=== PATIENT | female | born 1940 | race Asian ===

== ENCOUNTER 2016-12-30 19:25 | Emergency (ER) | payer MEDICARE, MEDICAID ==
[~2016-12-30] VITALS: Ht 162.6 cm; Wt 49.9 kg
[2016-12-30 19:27] VITALS: BP 163/89
[2016-12-30] MEDS ORDERED: Solu-MEDROL 125mg Inj IVP ONE (19:45)
[2016-12-30] MEDS ORDERED: Famotidine 20 MG/ 2ML VIAL IVP ONE (19:45)
[2016-12-30] MEDS ORDERED: DiphenhydrAMINE 50mg/ml Inj IVP ONE (19:45)
[2016-12-30 19:46] LABS: BASOPHILS % (AUTO) 1.2 % (0.0-2.0); EOSINOPHILS % (AUTO) 0.3 % (0.0-3.0); LYMPHOCYTES % (AUTO) 41.4 % (20.0-45.0); MEAN CORPUSCULAR HEMOGLOBIN 34.4 PG (27.0-31.0); MEAN CORPUSCULAR HGB CONC 35.9 G/DL (32.0-36.0); MEAN CORPUSCULAR VOLUME 96 FL (80-99); MEAN PLATELET VOLUME 8.9 FL (6.5-10.1); NEUTROPHILS % (AUTO) 47.1 % (45.0-75.0); PLATELET COUNT 187 K/UL (150-450); RED BLOOD COUNT 3.94 M/UL (4.20-5.40); RED CELL DISTRIBUTION WIDTH 11.8 % (11.6-14.8); WHITE BLOOD COUNT 7.5 K/UL (4.8-10.8)
[2016-12-30 20:14] LABS: ALANINE AMINOTRANSFERASE 25 U/L (3-33); ALBUMIN/GLOBULIN RATIO 1.2 (1.0-2.7); ANION GAP 16 (5-15); ASPARTATE AMINO TRANSFERASE 36 U/L (5-40); CALCIUM 8.3 mg/dL (8.6-10.2); CARBON DIOXIDE 22 mEQ/L (20-30); CHLORIDE 99 mEQ/L (98-107); CREATININE 0.9 mg/dL (0.5-0.9); HEMOLYSIS 96; POTASSIUM 4.8 mEQ/L (3.4-4.9); SODIUM 137 mEQ/L (135-145); TOTAL PROTEIN 7.6 g/dL (6.6-8.7); TROPONIN I < 0.30 ng/mL (<=0.30)
[2016-12-30 20:24] LABS: CKMB 3.1 ng/mL (< 3.8)
[2016-12-30] MEDS ORDERED: PREDNISONE20 MG ORAL (20:46)
[2016-12-30] MEDS ORDERED: DIPHENHYDRAMINE25 M1 ORAL (20:46)
--- NOTE | 2016-12-30 20:52 | Emergency Room Report ---
History of Present Illness General Chief Complaint: General Complaint Source: Patient Present Illness HPI 76-year-old female presents ED for evaluation. Per EMS patient was stung multiple times by bees today. Notes being stung in the face arms and legs multiple times. Patient denies any known allergy to bee stings. EMS states that they removed all the bee stingers. She presents with some swelling around her eyes. States she was stung there. Denies any shortness of breath. Denies any tongue swelling or throat swelling. States she feels fine. Denies any pain. No other aggravating or relieving factors. Denies any other associated symptoms Allergies: Coded Allergies: No Known Allergies (Unverified , 12/30/16) Patient History Past Medical History: DM, HTN Past Surgical History: none Pertinent Family History: none Social History: Denies: alcohol use, drug use, smoking Now: No Immunizations: UTD Reviewed Nursing Documentation: PMH: Agreed, PSxH: Agreed Nursing Documentation-PMH Past Medical History: No History, Except For Hx Hypertension: Yes - But Not take medications Hx Diabetes: Yes Review of Systems All Other Systems: negative except mentioned in HPI Physical Exam Vital Signs Date Time Temp Pulse Resp B/P Pulse Ox O2 Delivery O2 Flow Rate FiO2 12/30/16 19:22 97.9 86 16 160/70 98 Room Air Sp02 EP Interpretation: reviewed, normal General Appearance: no apparent distress, alert, GCS 15, non-toxic Head: normocephalic, other - some periorbital swelling noted bilaterally Eyes: bilateral eye EOMI, bilateral eye PERRL, bilateral eye normal inspection ENT: hearing grossly normal, normal pharynx, no angioedema, normal voice Neck: full range of motion, supple/symm/no masses Respiratory: chest non-tender, lungs clear, normal breath sounds, speaking full sentences Cardiovascular #1: regular rate, rhythm, no edema Cardiovascular #2: 2+ carotid (R), 2+ carotid (L), 2+ radial (R), 2+ radial (L) , 2+ dorsalis pedis (R), 2+ dorsalis pedis (L) Gastrointestinal: normal bowel sounds, non tender, soft, non-distended, no guarding, no rebound Rectal: deferred Genitourinary: normal inspection, no CVA tenderness Musculoskeletal: back normal, gait/station normal, normal range of motion, non- tender Neurologic: alert, oriented x3, responsive, motor strength/tone normal, sensory intact, speech normal Psychiatric: judgement/insight normal, memory normal, mood/affect normal, no suicidal/homicidal ideation Reflexes: 3+ bicep (R), 3+ bicep (L), 3+ tricep (R), 3+ tricep (L), 3+ knee (R) , 3+ knee (L) Skin: normal color, no rash, warm/dry, well hydrated Lymphatic: no adenopathy Medical Decision Making Diagnostic Impression: Primary Impression: Allergic reaction Qualified Codes: T78.40XA - Allergy, unspecified, initial encounter Additional Impression: Bee sting reaction Qualified Codes: T63.441A - Toxic effect of venom of bees, accidental ( unintentional), initial encounter ER Course Hospital Course 76-year-old female presents with multiple bee stings to her hands and face. No documented allergy. No shortness of breath Differential diagnoses include: allergic reaction, angioedema Clinical course Patient placed on stretcher. 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 After initial history and physical, I ordered Solu-Medrol, Benadryl, Zantac, IV fluids, EKG, CXR Labs reviewed - electrolytes okay, no leukocytosis, hemoglobin/hematocrit okay EKG - NSR, no acute changes CXR unremarkable Patient observed for some time in ED. On cardiac monitoring. No signs of anaphylaxis. No shortness of breath. I believe patient be safely discharged to home at this time i. I feel this is a highly complex case requiring extensive working including EKG/Rhythm strip, Xray/CT/US, Blood/urine lab work, repeat exams while in ED, and administration of strong opiates/narcotics for pain control, admission to hospital or close patient follow up. Diagnosis - allergic reaction, bee sting reaction Stable and discharged to home with prescriptions for prednisone, Benadryl. Followup with PMD. Return to ED if symptoms recur or worsen Labs Test 12/30/16 19:35 White Blood Count 7.5 K/UL (4.8-10.8) Red Blood Count 3.94 M/UL (4.20-5.40) Hemoglobin 13.5 G/DL (12.0-16.0) Hematocrit 37.7 % (37.0-47.0) Mean Corpuscular Volume 96 FL (80-99) Mean Corpuscular Hemoglobin 34.4 PG (27.0-31.0) Mean Corpuscular Hemoglobin Concent 35.9 G/DL (32.0-36.0) Red Cell Distribution Width 11.8 % (11.6-14.8) Platelet Count 187 K/UL (150-450) Mean Platelet Volume 8.9 FL (6.5-10.1) Neutrophils (%) (Auto) 47.1 % (45.0-75.0) Lymphocytes (%) (Auto) 41.4 % (20.0-45.0) Monocytes (%) (Auto) 10.0 % (1.0-10.0) Eosinophils (%) (Auto) 0.3 % (0.0-3.0) Basophils (%) (Auto) 1.2 % (0.0-2.0) Sodium Level 137 mEQ/L (135-145) Potassium Level 4.8 mEQ/L (3.4-4.9) Chloride Level 99 mEQ/L (98-107) Carbon Dioxide Level 22 mEQ/L (20-30) Anion Gap 16 (5-15) Blood Urea Nitrogen 25 mg/dL (7-23) Creatinine 0.9 mg/dL (0.5-0.9) Estimat Glomerular Filtration Rate mL/min (>60) Glucose Level 342 mg/dL (74-106) Calcium Level 8.3 mg/dL (8.6-10.2) Total Bilirubin 0.5 mg/dL (0.0-1.2) Aspartate Amino Transf (AST/SGOT) 36 U/L (5-40) Alanine Aminotransferase (ALT/SGPT) 25 U/L (3-33) Alkaline Phosphatase 46 U/L (35-104) Total Creatine Kinase 127 U/L (26-140) Creatine Kinase MB 3.1 ng/mL (< 3.8) Creatine Kinase MB Relative Index 2.4 Troponin I < 0.30 ng/mL (<=0.30) Total Protein 7.6 g/dL (6.6-8.7) Albumin 4.2 g/dL (3.5-5.2) Globulin 3.4 g/dL Albumin/Globulin Ratio 1.2 (1.0-2.7) EKG Diagnostic Results Rate: normal Rhythm: NSR ST Segments: no acute changes ASA given to the pt in ED: No Rhythm Strip Diag. Results EP Interpretation: yes Rhythm: NSR, no PVC's Chest X-Ray Diagnostic Results Chest X-Ray Diagnostic Results : Chest X-Ray Ordered: Yes # of Views/Limited/Complete: 1 View Indication: Other - bee sting EP Interpretation: Yes Interpretation: no consolidation, no effusion, no pneumothorax, no acute cardiopulmonary disease Impression: No acute disease Interpreting ER Provider: Electronically signed by Memo Mccarthy MD Last Vital Signs Date Time Temp Pulse Resp B/P Pulse Ox O2 Delivery O2 Flow Rate FiO2 12/30/16 19:27 97.9 83 16 163/89 98 Room Air Status: improved Disposition: HOME, SELF-CARE Condition: Stable Scripts Prednisone* (PREDNISONE*) 20 Mg Tablet 40 MG ORAL DAILY for 5 Days, #10 TAB Prov: MEMO MCCARTHY M.D. 12/30/16 Diphenhydramine Hcl* (DIPHENHYDRAMINE HCL*) 25 Mg Capsule 25 MG ORAL Q6H Y for Itching for 5 Days, #30 CAP 0 Refills Prov: MEMO MCCARTHY M.D. 12/30/16 Patient Instructions: Bee, Wasp, or Hornet Sting MEMO MCCARTHY M.D. Dec 30, 2016 20:52
[2016-12-30 21:00] VITALS: BP 142/70
[2016-12-30] MEDS ORDERED: ZOFRAN4 MG ORAL (21:27)
[2016-12-30 21:29] VITALS: BP 142/70
--- NOTE | 2016-12-31 09:45 | Diagnostic Imaging Report ---
Indication: Shortness of breath Technique: XRAY CHEST 1 V Comparison: None Findings: Cardiac silhouette is prominent. Atherosclerotic changes are seen. There is no consolidation or pleural effusion. Degenerative changes of the spine are noted. Impression: No acute cardiopulmonary disease. Atherosclerotic changes.
--- NOTE | 2016-12-31 16:58 | Cardiology Report ---
APPROVED REPORT EKG Measurement Heart [id number] Normal sinus rhythm Possible Left atrial enlargement Septal infarct, age undetermined Abnormal ECG
== END 2016-12-30 21:29 | disposition home or self-care (01) ==
LOC: EDBD 19:25 → EMR 19:56
DX: T63.441A Toxic effect of venom of bees, accidental (unintentional), initial encounter (principal); T78.40XA Allergy, unspecified, initial encounter; W57.XXXA Bitten or stung by nonvenomous insect and other nonvenomous arthropods, initial encounter; Y93.9 Activity, unspecified; Y92.9 Unspecified place or not applicable; E11.9 Type 2 diabetes mellitus without complications; I10 Essential (primary) hypertension
CPT/HCPCS: 36415; 71010; 80053; 82550; 82553; 84484; 85025; 93005; 96361; 96374; 96375; 99284; J1200; J2405; J2930; J7040; S0028